=== PATIENT | male | born 1950 | race Caucasian/White ===

== ENCOUNTER 2018-06-13 03:36 | Inpatient (IN) | payer MEDICARE, MEDICAID ==
[2018-06-13 04:02] LABS: ADD MAN DIFF? NO
[2018-06-13 04:06] LABS: BASOPHILS % 0.8 % (0.0-2.0); EOSINOPHILS # 0.3 10^3/ul (0.0-0.5); EOSINOPHILS % 7.6 % (0.0-7.0); HEMOGLOBIN 11.4 g/dl (14.0-18.0); LYMPHOCYTES # 1.6 10^3/ul (0.8-2.9); LYMPHOCYTES % 40.6 % (15.0-51.0); MEAN CORPUSCULAR HEMOGLOBIN 33.5 pg (29.0-33.0); MEAN CORPUSCULAR HGB CONC 32.6 g/dl (32.0-37.0); MEAN CORPUSCULAR VOLUME 102.9 fl (82.0-101.0); MEAN PLATELET VOLUME 10.3 fl (7.4-10.4); MONOCYTE # 0.2 10^3/ul (0.3-0.9); MONOCYTES % 6.3 % (0.0-11.0); NEUTROPHIL # 1.7 10^3/ul (1.6-7.5); NEUTROPHILS % 44.4 % (39.0-77.0); PLATELET COUNT 156 10^3/UL (140-415); RED CELL DISTRIBUTION WIDTH 14.6 % (11.5-14.5)
[2018-06-13 04:06] LABS: WHITE BLOOD COUNT 3.8 10^3/ul (4.8-10.8)
[2018-06-13] MEDS: PIPER-TAZO 2.25 GM (PMX) 50 ML IVPB (04:20)
[2018-06-13 04:25] LABS: INR 0.99; PARTIAL THROMBOPLASTIN TIME 23.2 Sec (23.0-35.0); PROTIME 13.2 Sec (11.9-14.9)
[2018-06-13 04:31] LABS: ALANINE AMINOTRANSFERASE 15 IU/L (13-69); ALBUMIN 4.1 g/dl (3.3-4.9); ALBUMIN/GLOBULIN RATIO 1.51; ALKALINE PHOSPHATASE 101 IU/L (42-121); ANION GAP 18 (5-13); ASPARTATE AMINO TRANSFERASE 22 IU/L (15-46); BILIRUBIN,INDIRECT 0.1 mg/dl (0-1.1); BILIRUBIN,TOTAL 0.1 mg/dl (0.2-1.3); BLOOD UREA NITROGEN 60 mg/dl (7-20); CALCIUM 9.4 mg/dl (8.4-10.2); CARBON DIOXIDE 18 mmol/L (21-31); CHLORIDE 103 mmol/L (97-110); CREATININE 7.09 mg/dl (0.61-1.24); Estimated GFR 8 mL/min (>60); GLUCOSE 154 mg/dl (70-220); POTASSIUM 4.8 mmol/L (3.5-5.1); SODIUM 139 mmol/L (135-144); TOTAL PROTEIN 6.8 g/dl (6.1-8.1)
[2018-06-13 04:34] LABS: AADO2 Arterial 103.1 mmHg (7.0-24.0); Allen Test ACCEPTAB; Arterial Base Excess -4.8 mmol/L (-3.0-3); Arterial Blood Gas Oxygen Sat 94.4 mmHG (95.0-98.0); Arterial COHb 0.3 % (0.0-3.0); Arterial Fraction of Oxyhgb 93.8 % (93.0-99.0); Arterial HCO3 20.3 mmol/L (22.0-26.0); Arterial MetHb 0.3 % (0.0-1.5); Arterial pCO2 37.7 mmhg (35-45); MODE NASAL CANNULA; Site Right Radial
[2018-06-13 04:40] LABS: TROPONIN-I 0.077 ng/ml (0.000-0.120)
[2018-06-13] MEDS: VANCOMYCIN 1 GM (PMX) 250 ML IVPB (04:48)
[2018-06-13] MEDS ORDERED: ONDANSETRON 4 MG INJ IV (07:00)
[2018-06-13] MEDS ORDERED: ALBUTEROL/IPRATROPIUM (NEB) 3 ML AMP HHN (07:00)
[2018-06-13] MEDS ORDERED: NACL 0.9% 3 ML SYG IV (07:00)
[2018-06-13 07:42] LABS: ADD UMIC YES; UR ASCORBIC ACID NEGATIVE (NEGATIVE); UR BACTERIA FEW /HPF (NONE SEEN); UR BILIRUBIN (Dip) NEGATIVE (NEGATIVE); UR BLOOD (Dip) NEGATIVE (NEGATIVE); UR CLARITY CLEAR (CLEAR); UR COLOR YELLOW (YELLOW); UR GLUCOSE (Dip) 1+ mg/dL (NEGATIVE); UR KETONES (Dip) NEGATIVE (NEGATIVE); UR LEUKOCYTE ESTERASE (Dip) NEGATIVE Leu/ul (NEGATIVE); UR NITRITE (Dip) NEGATIVE (NEGATIVE); UR RBC 2 /HPF (0-5); UR SPECIFIC GRAVITY (Dip) 1.012 (1.003-1.030); UR TOTAL PROTEIN (Dip) 2+ mg/dl (NEGATIVE); UR UROBILINOGEN (Dip) NEGATIVE (NEGATIVE); UR WBC 1 /HPF (0-5)
[2018-06-13] MEDS: FUROSEMIDE 20 MG INJ IV (08:29)
[2018-06-13] MEDS: AMLODIPINE 10 MG TAB PO (08:30)
[2018-06-13] MEDS: LEVOTHYROXINE 100 MCG TAB PO (08:30)
[2018-06-13 08:54] LABS: LACTIC ACID 0.7 mmol/L (0.5-2.0)
[2018-06-13 11:32] LABS: AMPHETAMINE/METHAMPHETAMINE Negative (NEGATIVE); BARBITURATES Negative (NEGATIVE); BENZODIAZEPINES Negative (NEGATIVE); CANNABINOIDS Negative (NEGATIVE); COCAINE Negative (NEGATIVE); OPIATES Negative (NEGATIVE)
[2018-06-13] MEDS: SEVELAMER CARBONATE 0.8 GM PKT PO ×2 (12:29→17:47)
[2018-06-13] MEDS: CITRIC ACID/NA CITRATE 30 ML CUP PO ×2 (12:29→21:05)
[2018-06-13 13:53] LABS: CREATINE KINASE 30 IU/L (23-200)
[2018-06-13 13:53] LABS: MAGNESIUM 2.5 mg/dl (1.7-2.5)
[2018-06-13 14:05] LABS: CK INDEX 6.4; CK-MB 1.92 ng/ml (0.0-2.4)
[2018-06-13] MEDS ORDERED: ALBUMIN HUMAN 25% 50 ML IV (14:30)
[2018-06-13] MEDS ORDERED: SODIUM CHLORIDE 0.9% 1L BAG IV (14:30)
[2018-06-13 19:17] LABS: CREATINE KINASE 26 IU/L (23-200)
[2018-06-13 19:29] LABS: CK INDEX 7.2; CK-MB 1.86 ng/ml (0.0-2.4); TROPONIN-I 0.094 ng/ml (0.000-0.120)
[2018-06-13] MEDS: TAMSULOSIN (SR) 0.4 MG CAP PO (21:05)
[2018-06-14 06:48] LABS: ADD MAN DIFF? NO
[2018-06-14] MEDS: LEVOTHYROXINE 100 MCG TAB PO (06:49)
[2018-06-14 06:52] LABS: BASOPHILS % 0.9 % (0.0-2.0); EOSINOPHILS # 0.3 10^3/ul (0.0-0.5); EOSINOPHILS % 6.2 % (0.0-7.0); HEMATOCRIT 29.4 % (42.0-52.0); HEMOGLOBIN 9.9 g/dl (14.0-18.0); LYMPHOCYTES # 1.1 10^3/ul (0.8-2.9); LYMPHOCYTES % 26.2 % (15.0-51.0); MEAN CORPUSCULAR HEMOGLOBIN 33.9 pg (29.0-33.0); MEAN CORPUSCULAR HGB CONC 33.7 g/dl (32.0-37.0); MEAN CORPUSCULAR VOLUME 100.7 fl (82.0-101.0); MEAN PLATELET VOLUME 10.5 fl (7.4-10.4); MONOCYTE # 0.4 10^3/ul (0.3-0.9); MONOCYTES % 8.3 % (0.0-11.0); NEUTROPHIL # 2.5 10^3/ul (1.6-7.5); NEUTROPHILS % 57.9 % (39.0-77.0); PLATELET COUNT 142 10^3/UL (140-415); RED BLOOD COUNT 2.92 10^6/ul (4.70-6.10)
[2018-06-14 06:52] LABS: WHITE BLOOD COUNT 4.4 10^3/ul (4.8-10.8)
[2018-06-14 07:00] LABS: HEMOGLOBIN A1C 4.7 % (0-5.9)
[2018-06-14 07:07] LABS: LACTIC ACID 0.8 mmol/L (0.5-2.0)
[2018-06-14 07:12] LABS: ALANINE AMINOTRANSFERASE 19 IU/L (13-69); ALBUMIN 3.4 g/dl (3.3-4.9); ALBUMIN/GLOBULIN RATIO 1.36; ALKALINE PHOSPHATASE 84 IU/L (42-121); ANION GAP 13 (5-13); ASPARTATE AMINO TRANSFERASE 16 IU/L (15-46); BILIRUBIN,INDIRECT 0.2 mg/dl (0-1.1); BILIRUBIN,TOTAL 0.2 mg/dl (0.2-1.3); BLOOD UREA NITROGEN 60 mg/dl (7-20); CARBON DIOXIDE 23 mmol/L (21-31); CHLORIDE 105 mmol/L (97-110); CHOL/HDL RATIO 3.1 RATIO; CHOLESTEROL 93 mg/dl (100-200); CREATININE 7.11 mg/dl (0.61-1.24); Estimated GFR 8 mL/min (>60); GLUCOSE 118 mg/dl (70-220); HDL CHOLESTEROL 30 mg/dl (30-78); LDL CHOLESTEROL,CALCULATED 44 mg/dl; MAGNESIUM 2.4 mg/dl (1.7-2.5); POTASSIUM 3.7 mmol/L (3.5-5.1); SODIUM 141 mmol/L (135-144); TOTAL PROTEIN 5.9 g/dl (6.1-8.1); TRIGLYCERIDES 94 mg/dl (0-149)
[2018-06-14 07:54] LABS: CREATINE KINASE 26 IU/L (23-200)
[2018-06-14 07:54] LABS: URIC ACID 8.4 mg/dl (3.1-7.9)
[2018-06-14] MEDS: SEVELAMER CARBONATE 0.8 GM PKT PO ×3 (07:55→17:41)
[2018-06-14] MEDS: FUROSEMIDE 20 MG INJ IV (08:53)
[2018-06-14] MEDS: CITRIC ACID/NA CITRATE 30 ML CUP PO ×3 (09:00→20:59)
[2018-06-14] MEDS: AMLODIPINE 10 MG TAB PO (09:00)
[2018-06-14 09:36] LABS: HEPATITIS B SURFACE ANTIGEN NEGATIVE (NEGATIVE)
[2018-06-14] MEDS: TAMSULOSIN (SR) 0.4 MG CAP PO (20:59)
[2018-06-14] MEDS: ACETAMINOPHEN 325 MG TAB PO (20:59)
[2018-06-14] MEDS: HYDROCODONE/APAP (5/325) TAB PO (23:53)
[2018-06-15] MEDS ORDERED: IBUPROFEN 400 MG TAB PO
[2018-06-15] MEDS: ZOLPIDEM 5 MG TAB PO ×2 (00:56→23:15)
[2018-06-15] MEDS: LEVOTHYROXINE 100 MCG TAB PO (06:20)
[2018-06-15 06:24] LABS: ADD MAN DIFF? NO
[2018-06-15 06:32] LABS: EOSINOPHILS # 0.4 10^3/ul (0.0-0.5); EOSINOPHILS % 8.5 % (0.0-7.0); HEMATOCRIT 33.8 % (42.0-52.0); HEMOGLOBIN 11.3 g/dl (14.0-18.0); LYMPHOCYTES # 1.3 10^3/ul (0.8-2.9); MEAN CORPUSCULAR HEMOGLOBIN 33.6 pg (29.0-33.0); MEAN CORPUSCULAR HGB CONC 33.4 g/dl (32.0-37.0); MEAN CORPUSCULAR VOLUME 100.6 fl (82.0-101.0); MONOCYTE # 0.4 10^3/ul (0.3-0.9); MONOCYTES % 9.8 % (0.0-11.0); NEUTROPHILS % 48.5 % (39.0-77.0); PLATELET COUNT 164 10^3/UL (140-415); RED BLOOD COUNT 3.36 10^6/ul (4.70-6.10); RED CELL DISTRIBUTION WIDTH 13.9 % (11.5-14.5)
[2018-06-15 06:32] LABS: WHITE BLOOD COUNT 4.1 10^3/ul (4.8-10.8)
[2018-06-15 07:12] LABS: MAGNESIUM 2.2 mg/dl (1.7-2.5)
[2018-06-15 07:12] LABS: PHOSPHORUS 3.9 mg/dl (2.5-4.9)
[2018-06-15 07:31] LABS: ANION GAP 11 (5-13); BLOOD UREA NITROGEN 35 mg/dl (7-20); CALCIUM 9.4 mg/dl (8.4-10.2); CARBON DIOXIDE 26 mmol/L (21-31); CHLORIDE 102 mmol/L (97-110); CREATININE 4.58 mg/dl (0.61-1.24); Estimated GFR 13 mL/min (>60); GLUCOSE 78 mg/dl (70-220); POTASSIUM 3.6 mmol/L (3.5-5.1); SODIUM 139 mmol/L (135-144)
[2018-06-15] MEDS: CITRIC ACID/NA CITRATE 30 ML CUP PO ×3 (08:02→20:59)
[2018-06-15] MEDS: SEVELAMER CARBONATE 0.8 GM PKT PO ×3 (08:02→17:52)
[2018-06-15] MEDS: FUROSEMIDE 20 MG INJ IV (08:03)
[2018-06-15] MEDS: AMLODIPINE 10 MG TAB PO (08:03)
[2018-06-15] MEDS: TAMSULOSIN (SR) 0.4 MG CAP PO (20:59)
[2018-06-16] MEDS: LEVOTHYROXINE 100 MCG TAB PO (06:06)
[2018-06-16] MEDS: SEVELAMER CARBONATE 0.8 GM PKT PO ×3 (08:49→17:40)
[2018-06-16] MEDS: FUROSEMIDE 20 MG INJ IV (08:50)
[2018-06-16] MEDS: AMLODIPINE 10 MG TAB PO (08:50)
[2018-06-16] MEDS: CITRIC ACID/NA CITRATE 30 ML CUP PO ×2 (08:50→12:04)
[2018-06-16] MEDS ORDERED: NON-FORMULARY/PATIENT OWN MED (Temazepam* 15 MG) PO (11:30)
[2018-06-16] MEDS ORDERED: DONEPEZIL 5 MG TAB PO (21:00)
[2018-06-16] MEDS ORDERED: QUETIAPINE 25 MG TAB PO (21:00)
[2018-06-16] MEDS ORDERED: LISINOPRIL 10 MG TAB PO (21:00)
[2018-06-16] MEDS ORDERED: ATORVASTATIN 40 MG TAB PO (21:00)
[2018-06-17] MEDS ORDERED: LEVOTHYROXINE 25 MCG TAB PO (07:00)
[2018-06-17] MEDS ORDERED: ALLOPURINOL 100 MG TAB PO (09:00)
[2018-06-17] MEDS ORDERED: CALCITRIOL 0.25 MCG CAP PO (09:00)
[2018-06-17] MEDS ORDERED: ESCITALOPRAM 10 MG TAB PO (09:00)
[2018-06-17] MEDS ORDERED: METOPROLOL (XL) 100 MG TAB PO (09:00)
[2018-06-17] MEDS ORDERED: RANITIDINE 150 MG TAB PO (09:00)
[2018-06-17] MEDS ORDERED: RIVAROXABAN 15 MG TABLET PO (09:00)
== END 2018-06-16 17:30 | disposition left against medical advice (07) | DRG 70 ==
LOC: TEL 06-15 21:34 → E/R 03:36 → TEL 05:31
PROC: 5A1D70Z Performance of Urinary Filtration, Intermittent, Less than 6 Hours Per Day (ICD-10-PCS; principal; 2018-06-14)
DX: G93.41 Metabolic encephalopathy (principal); N18.6 End stage renal disease; I50.23 Acute on chronic systolic (congestive) heart failure; N17.9 Acute kidney failure, unspecified; E87.2 Acidosis; I13.2 Hypertensive heart and chronic kidney disease with heart failure and with stage 5 chronic kidney disease, or end stage renal disease; Z99.2 Dependence on renal dialysis; I48.0 Paroxysmal atrial fibrillation; I25.10 Atherosclerotic heart disease of native coronary artery without angina pectoris; Z95.0 Presence of cardiac pacemaker; F03.90 Unspecified dementia, unspecified severity, without behavioral disturbance, psychotic disturbance, mood disturbance, and anxiety; E87.5 Hyperkalemia; B19.20 Unspecified viral hepatitis C without hepatic coma; F12.90 Cannabis use, unspecified, uncomplicated; Z86.73 Personal history of transient ischemic attack (TIA), and cerebral infarction without residual deficits; F17.200 Nicotine dependence, unspecified, uncomplicated; D63.1 Anemia in chronic kidney disease; I25.2 Old myocardial infarction; Z87.891 Personal history of nicotine dependence; J44.9 Chronic obstructive pulmonary disease, unspecified; E03.9 Hypothyroidism, unspecified; E78.5 Hyperlipidemia, unspecified; F99 Mental disorder, not otherwise specified; R00.1 Bradycardia, unspecified; F32.9 Major depressive disorder, single episode, unspecified; G47.9 Sleep disorder, unspecified
CPT/HCPCS: 36415; 36600; 70450; 71045; 76775; 80048; 80053; 80061; 80307; 81001; 82550; 82553; 82803; 83036; 83605; 83735; 84100; 84443; 84484; 84560; 85025; 85610; 85730; 87040; 87086; 87340; 90686; 90935; 92610; 93005; 93306; 96365; 96366; 96368; 97161; 99291-25

== ENCOUNTER 2018-06-23 10:09 | Inpatient (IN) | payer MEDICARE, MEDICAID ==
[2018-06-23] MEDS: IPRATROPIUM (NEB) 0.5 MG/2.5 ML AMP HHN (10:33)
[2018-06-23] MEDS: ALBUTEROL 0.083% (NEB) 2.5 MG/3 ML AMP HHN (10:33)
[2018-06-23 10:45] LABS: ADD MAN DIFF? NO
[2018-06-23 10:49] LABS: BASOPHIL # 0.1 10^3/ul (0.0-0.1); BASOPHILS % 0.5 % (0.0-2.0); EOSINOPHILS # 0.7 10^3/ul (0.0-0.5); HEMATOCRIT 36.3 % (42.0-52.0); HEMOGLOBIN 11.7 g/dl (14.0-18.0); LYMPHOCYTES # 1.5 10^3/ul (0.8-2.9); LYMPHOCYTES % 15.5 % (15.0-51.0); MEAN CORPUSCULAR HEMOGLOBIN 33.1 pg (29.0-33.0); MEAN CORPUSCULAR HGB CONC 32.2 g/dl (32.0-37.0); MEAN CORPUSCULAR VOLUME 102.5 fl (82.0-101.0); MEAN PLATELET VOLUME 9.5 fl (7.4-10.4); MONOCYTE # 0.4 10^3/ul (0.3-0.9); MONOCYTES % 4.2 % (0.0-11.0); NEUTROPHIL # 7.1 10^3/ul (1.6-7.5); NEUTROPHILS % 72.3 % (39.0-77.0); PLATELET COUNT 221 10^3/UL (140-415); RED BLOOD COUNT 3.54 10^6/ul (4.70-6.10); RED CELL DISTRIBUTION WIDTH 13.5 % (11.5-14.5)
[2018-06-23 10:49] LABS: WHITE BLOOD COUNT 9.8 10^3/ul (4.8-10.8)
[2018-06-23 11:09] LABS: ANION GAP 15 (5-13); BLOOD UREA NITROGEN 37 mg/dl (7-20); CALCIUM 10.2 mg/dl (8.4-10.2); CARBON DIOXIDE 21 mmol/L (21-31); CHLORIDE 103 mmol/L (97-110); CREATININE 4.88 mg/dl (0.61-1.24); Estimated GFR 12 mL/min (>60); GLUCOSE 137 mg/dl (70-220); INR 1.53; PROTIME 18.5 Sec (11.9-14.9); PT RATIO 1.4; SODIUM 139 mmol/L (135-144)
[2018-06-23 11:10] LABS: PARTIAL THROMBOPLASTIN TIME 36.5 Sec (23.0-35.0)
[2018-06-23 11:18] LABS: TROPONIN-I 0.063 ng/ml (0.000-0.120)
[2018-06-23] MEDS: NA BICARBONATE 8.4% 50 ML SYG IV (12:30)
[2018-06-23] MEDS ORDERED: ONDANSETRON 4 MG INJ IV (12:30)
[2018-06-23] MEDS ORDERED: ACETAMINOPHEN 325 MG TAB PO (12:30)
[2018-06-23] MEDS: SODIUM POLYSTYRENE 15 GM KIT (POWDER + SORBITOL) PO (12:31)
[2018-06-23] MEDS ORDERED: NACL 0.9% 3 ML SYG IV (13:00)
[2018-06-23] MEDS ORDERED: ALBUTEROL/IPRATROPIUM (NEB) 3 ML AMP HHN (13:00)
[2018-06-23] MEDS: FUROSEMIDE 20 MG INJ IV ×2 (13:17→18:52)
[2018-06-23] MEDS: ALBUTEROL/IPRATROPIUM (NEB) 3 ML AMP HHN (14:36)
[2018-06-23 14:58] LABS: LACTIC ACID 1.6 mmol/L (0.5-2.0)
[2018-06-23] MEDS: CALCIUM ACETATE 667 MG CAP PO (17:47)
[2018-06-23] MEDS: SEVELAMER CARBONATE 0.8 GM PKT PO (17:47)
[2018-06-23] MEDS: FLUTICASONE/VILANTEROL 100-25 INH (18:30)
[2018-06-23] MEDS ORDERED: ALBUMIN HUMAN 25% 50 ML IV (18:30)
[2018-06-23] MEDS ORDERED: SODIUM CHLORIDE 0.9% 1L BAG IV (18:30)
[2018-06-23 19:10] LABS: ANION GAP 12 (5-13); BLOOD UREA NITROGEN 39 mg/dl (7-20); CALCIUM 9.7 mg/dl (8.4-10.2); CARBON DIOXIDE 24 mmol/L (21-31); CHLORIDE 104 mmol/L (97-110); CREATININE 4.92 mg/dl (0.61-1.24); Estimated GFR 12 mL/min (>60); GLUCOSE 132 mg/dl (70-220); POTASSIUM 4.8 mmol/L (3.5-5.1); SODIUM 140 mmol/L (135-144)
[2018-06-23] MEDS: ATORVASTATIN 40 MG TAB PO (20:50)
[2018-06-23] MEDS: TAMSULOSIN (SR) 0.4 MG CAP PO (20:50)
[2018-06-23] MEDS: DONEPEZIL 5 MG TAB PO (20:50)
[2018-06-23] MEDS: QUETIAPINE 25 MG TAB PO (20:50)
[2018-06-23] MEDS: ACETAMINOPHEN 325 MG TAB PO (20:51)
[2018-06-23] MEDS: LISINOPRIL 10 MG TAB PO (20:51)
[2018-06-23] MEDS: IBUPROFEN 600 MG TAB PO (21:30)
[2018-06-24] MEDS: APIXABAN 5 MG TABLET PO (00:35)
[2018-06-24 01:36] LABS: TROPONIN-I 0.077 ng/ml (0.000-0.120)
[2018-06-24] MEDS: FUROSEMIDE 20 MG INJ IV ×2 (05:27→17:34)
[2018-06-24 06:46] LABS: ADD MAN DIFF? NO
[2018-06-24 06:49] LABS: BASOPHILS % 0.6 % (0.0-2.0); EOSINOPHILS # 0.4 10^3/ul (0.0-0.5); EOSINOPHILS % 9.3 % (0.0-7.0); HEMATOCRIT 29.5 % (42.0-52.0); HEMOGLOBIN 9.6 g/dl (14.0-18.0); LYMPHOCYTES # 1.1 10^3/ul (0.8-2.9); LYMPHOCYTES % 22.2 % (15.0-51.0); MEAN CORPUSCULAR HEMOGLOBIN 33.2 pg (29.0-33.0); MEAN CORPUSCULAR HGB CONC 32.5 g/dl (32.0-37.0); MEAN CORPUSCULAR VOLUME 102.1 fl (82.0-101.0); MEAN PLATELET VOLUME 9.6 fl (7.4-10.4); MONOCYTE # 0.3 10^3/ul (0.3-0.9); NEUTROPHIL # 2.9 10^3/ul (1.6-7.5); NEUTROPHILS % 60.5 % (39.0-77.0); PLATELET COUNT 170 10^3/UL (140-415); RED BLOOD COUNT 2.89 10^6/ul (4.70-6.10); RED CELL DISTRIBUTION WIDTH 13.8 % (11.5-14.5)
[2018-06-24 06:49] LABS: WHITE BLOOD COUNT 4.7 10^3/ul (4.8-10.8)
[2018-06-24] MEDS: LEVOTHYROXINE 100 MCG TAB PO (06:53)
[2018-06-24 07:12] LABS: ALANINE AMINOTRANSFERASE 17 IU/L (13-69); ALBUMIN 3.4 g/dl (3.3-4.9); ALBUMIN/GLOBULIN RATIO 1.47; ALKALINE PHOSPHATASE 75 IU/L (42-121); ANION GAP 13 (5-13); ASPARTATE AMINO TRANSFERASE 17 IU/L (15-46); BILIRUBIN,INDIRECT 0.4 mg/dl (0-1.1); BILIRUBIN,TOTAL 0.4 mg/dl (0.2-1.3); BLOOD UREA NITROGEN 46 mg/dl (7-20); CALCIUM 9.5 mg/dl (8.4-10.2); CARBON DIOXIDE 22 mmol/L (21-31); CHLORIDE 107 mmol/L (97-110); CREATININE 5.42 mg/dl (0.61-1.24); Estimated GFR 11 mL/min (>60); GLUCOSE 93 mg/dl (70-220); POTASSIUM 4.9 mmol/L (3.5-5.1); SODIUM 142 mmol/L (135-144); TOTAL PROTEIN 5.7 g/dl (6.1-8.1)
[2018-06-24 08:03] LABS: HEMOGLOBIN A1C 4.8 % (0-5.9)
[2018-06-24] MEDS: CALCITRIOL 0.25 MCG CAP PO (08:10)
[2018-06-24] MEDS: SEVELAMER CARBONATE 0.8 GM PKT PO ×3 (08:10→17:34)
[2018-06-24] MEDS: CALCIUM ACETATE 667 MG CAP PO ×3 (08:10→17:34)
[2018-06-24] MEDS: ALLOPURINOL 100 MG TAB PO (08:11)
[2018-06-24] MEDS: ESCITALOPRAM 10 MG TAB PO (08:11)
[2018-06-24] MEDS: FLUTICASONE/VILANTEROL 100-25 INH (08:11)
[2018-06-24] MEDS: AMLODIPINE 10 MG TAB PO (08:20)
[2018-06-24] MEDS: METOPROLOL (XL) 100 MG TAB PO (08:20)
[2018-06-24] MEDS: LISINOPRIL 10 MG TAB PO ×2 (08:20→20:33)
[2018-06-24] MEDS ORDERED: RIVAROXABAN 15 MG TABLET PO (09:00)
[2018-06-24] MEDS: QUETIAPINE 25 MG TAB PO (20:32)
[2018-06-24] MEDS: ATORVASTATIN 40 MG TAB PO (20:33)
[2018-06-24] MEDS: TAMSULOSIN (SR) 0.4 MG CAP PO (20:33)
[2018-06-24] MEDS: DONEPEZIL 5 MG TAB PO (20:33)
[2018-06-24] MEDS: HYDROCODONE/APAP (5/325) TAB PO (22:22)
[2018-06-25] MEDS: APIXABAN 5 MG TABLET PO (00:16)
[2018-06-25] MEDS: FUROSEMIDE 20 MG INJ IV ×2 (05:49→17:38)
[2018-06-25 06:22] LABS: ADD MAN DIFF? NO
[2018-06-25 06:29] LABS: BASOPHILS % 0.6 % (0.0-2.0); EOSINOPHILS # 0.6 10^3/ul (0.0-0.5); EOSINOPHILS % 11.7 % (0.0-7.0); HEMATOCRIT 30.3 % (42.0-52.0); LYMPHOCYTES # 1.3 10^3/ul (0.8-2.9); LYMPHOCYTES % 25.9 % (15.0-51.0); MEAN CORPUSCULAR HEMOGLOBIN 33.1 pg (29.0-33.0); MEAN CORPUSCULAR VOLUME 100.3 fl (82.0-101.0); MEAN PLATELET VOLUME 9.8 fl (7.4-10.4); MONOCYTE # 0.4 10^3/ul (0.3-0.9); MONOCYTES % 7.5 % (0.0-11.0); NEUTROPHIL # 2.7 10^3/ul (1.6-7.5); NEUTROPHILS % 54.1 % (39.0-77.0); PLATELET COUNT 183 10^3/UL (140-415); RED BLOOD COUNT 3.02 10^6/ul (4.70-6.10); RED CELL DISTRIBUTION WIDTH 13.6 % (11.5-14.5)
[2018-06-25 06:51] LABS: ANION GAP 9 (5-13); BLOOD UREA NITROGEN 37 mg/dl (7-20); CALCIUM 9.4 mg/dl (8.4-10.2); CARBON DIOXIDE 28 mmol/L (21-31); CHLORIDE 104 mmol/L (97-110); CREATININE 4.73 mg/dl (0.61-1.24); Estimated GFR 12 mL/min (>60); GLUCOSE 84 mg/dl (70-220); MAGNESIUM 1.9 mg/dl (1.7-2.5); POTASSIUM 4.6 mmol/L (3.5-5.1); SODIUM 141 mmol/L (135-144)
[2018-06-25] MEDS: LEVOTHYROXINE 100 MCG TAB PO (06:56)
[2018-06-25] MEDS: SEVELAMER CARBONATE 0.8 GM PKT PO ×3 (08:14→17:37)
[2018-06-25] MEDS: CALCITRIOL 0.25 MCG CAP PO (08:14)
[2018-06-25] MEDS: ESCITALOPRAM 10 MG TAB PO (08:15)
[2018-06-25] MEDS: ALLOPURINOL 100 MG TAB PO (08:15)
[2018-06-25] MEDS: ASPIRIN 81 MG TAB PO (08:15)
[2018-06-25] MEDS: CALCIUM ACETATE 667 MG CAP PO ×3 (08:15→17:38)
[2018-06-25] MEDS: FLUTICASONE/VILANTEROL 100-25 INH (08:15)
[2018-06-25] MEDS: LISINOPRIL 10 MG TAB PO ×2 (08:16→20:25)
[2018-06-25] MEDS: AMLODIPINE 10 MG TAB PO (08:16)
[2018-06-25] MEDS: METOPROLOL (XL) 100 MG TAB PO (08:16)
[2018-06-25] MEDS: HYDROCODONE/APAP (5/325) TAB PO ×2 (16:12→21:41)
[2018-06-25] MEDS: INFLUENZA VIRUS VACCINE 0.5 ML (DISPENSING) IM* (17:39)
[2018-06-25] MEDS: ATORVASTATIN 40 MG TAB PO (20:25)
[2018-06-25] MEDS: QUETIAPINE 25 MG TAB PO (20:25)
[2018-06-25] MEDS: TAMSULOSIN (SR) 0.4 MG CAP PO (20:25)
[2018-06-25] MEDS: DONEPEZIL 5 MG TAB PO (20:25)
[2018-06-26] MEDS: LEVOTHYROXINE 100 MCG TAB PO (06:32)
[2018-06-26] MEDS: FUROSEMIDE 20 MG INJ IV (06:32)
[2018-06-26 06:34] LABS: ADD MAN DIFF? NO
[2018-06-26 06:45] LABS: BASOPHILS % 0.8 % (0.0-2.0); EOSINOPHILS # 0.6 10^3/ul (0.0-0.5); EOSINOPHILS % 11.8 % (0.0-7.0); HEMOGLOBIN 10.3 g/dl (14.0-18.0); LYMPHOCYTES # 1.1 10^3/ul (0.8-2.9); MEAN CORPUSCULAR HEMOGLOBIN 33.3 pg (29.0-33.0); MEAN CORPUSCULAR HGB CONC 33.2 g/dl (32.0-37.0); MEAN CORPUSCULAR VOLUME 100.3 fl (82.0-101.0); MEAN PLATELET VOLUME 9.5 fl (7.4-10.4); MONOCYTE # 0.4 10^3/ul (0.3-0.9); MONOCYTES % 8.1 % (0.0-11.0); NEUTROPHILS % 56.9 % (39.0-77.0); PLATELET COUNT 184 10^3/UL (140-415); RED BLOOD COUNT 3.09 10^6/ul (4.70-6.10); RED CELL DISTRIBUTION WIDTH 13.4 % (11.5-14.5)
[2018-06-26 06:45] LABS: WHITE BLOOD COUNT 5.2 10^3/ul (4.8-10.8)
[2018-06-26 07:05] LABS: ANION GAP 10 (5-13); BLOOD UREA NITROGEN 27 mg/dl (7-20); CALCIUM 9.5 mg/dl (8.4-10.2); CARBON DIOXIDE 27 mmol/L (21-31); CHLORIDE 99 mmol/L (97-110); CREATININE 3.68 mg/dl (0.61-1.24); Estimated GFR 16 mL/min (>60); GLUCOSE 83 mg/dl (70-220); MAGNESIUM 1.8 mg/dl (1.7-2.5); PHOSPHORUS 3.6 mg/dl (2.5-4.9); POTASSIUM 3.9 mmol/L (3.5-5.1); SODIUM 136 mmol/L (135-144)
[2018-06-26] MEDS: CALCITRIOL 0.25 MCG CAP PO (08:38)
[2018-06-26] MEDS: AMLODIPINE 10 MG TAB PO (08:39)
[2018-06-26] MEDS: APIXABAN 5 MG TABLET PO (08:41)
[2018-06-26] MEDS: ALLOPURINOL 100 MG TAB PO (08:41)
[2018-06-26] MEDS: CALCIUM ACETATE 667 MG CAP PO ×2 (08:42→12:02)
[2018-06-26] MEDS: METOPROLOL (XL) 100 MG TAB PO (08:43)
[2018-06-26] MEDS: LISINOPRIL 10 MG TAB PO (08:43)
[2018-06-26] MEDS: FLUTICASONE/VILANTEROL 100-25 INH (08:44)
[2018-06-26] MEDS: SEVELAMER CARBONATE 0.8 GM PKT PO ×2 (08:44→12:02)
[2018-06-26] MEDS: ESCITALOPRAM 10 MG TAB PO (08:47)
[2018-06-26] MEDS ORDERED: LISINOPRIL 5 MG TAB PO (21:00)
[2018-06-27] MEDS ORDERED: FUROSEMIDE 40 MG TAB PO (09:00)
== END 2018-06-26 15:14 | disposition home or self-care (01) | DRG 291 ==
LOC: E/R 10:09 → TEL 12:24
PROC: 5A1D70Z Performance of Urinary Filtration, Intermittent, Less than 6 Hours Per Day (ICD-10-PCS; 2018-06-23)
PROC: 5A1D70Z Performance of Urinary Filtration, Intermittent, Less than 6 Hours Per Day (ICD-10-PCS; principal; 2018-06-24)
DX: I13.2 Hypertensive heart and chronic kidney disease with heart failure and with stage 5 chronic kidney disease, or end stage renal disease (principal); N18.6 End stage renal disease; I50.23 Acute on chronic systolic (congestive) heart failure; D68.9 Coagulation defect, unspecified; I48.91 Unspecified atrial fibrillation; I42.9 Cardiomyopathy, unspecified; E87.5 Hyperkalemia; J44.9 Chronic obstructive pulmonary disease, unspecified; F03.90 Unspecified dementia, unspecified severity, without behavioral disturbance, psychotic disturbance, mood disturbance, and anxiety; I25.10 Atherosclerotic heart disease of native coronary artery without angina pectoris; D63.1 Anemia in chronic kidney disease; E03.9 Hypothyroidism, unspecified; F32.9 Major depressive disorder, single episode, unspecified; F12.20 Cannabis dependence, uncomplicated; Z79.02 Long term (current) use of antithrombotics/antiplatelets; Z99.2 Dependence on renal dialysis; Z95.0 Presence of cardiac pacemaker; Z87.891 Personal history of nicotine dependence
CPT/HCPCS: 36415; 71045; 80048; 80053; 82962; 83036; 83605; 83735; 84100; 84484; 85025; 85610; 85730; 87040; 87081; 90686; 90935; 93005; 94640; 94664; 99291-25